=== PATIENT | male | born 1985 | race Caucasian/White ===

== ENCOUNTER 2021-11-24 15:42 | Emergency (ER) | payer SELFPAY ==
[2021-11-24 17:40] VITALS: BP 131/88; PULSE 72; RESP 20; TEMP 36.9; O2SAT 95; BMI 35.9
[2021-11-24 17:43] LABS: UTC Influenza A Antigen Negative (Negative); UTC Influenza B Antigen Negative (Negative)
--- NOTE | 2021-11-24 17:54 | HMH.EDUTC ---
[facility] [place] Disposition Clinical Impression: Bronchitis Sinusitis Qualifiers: Sinusitis location: unspecified location Chronicity: acute Recurrence: non-recurrent Qualified Code(s): J01.90 - Acute sinusitis, unspecified Disposition: Home, Self-Care Condition on Discharge: Good Instructions: DI for Sinusitis Additional Instructions: Drink plenty of fluids. Take tylenol or ibuprofen for pain or fever. Take the medications as directed. Follow up with your regular doctor. GO TO THE ER FOR ANY WORSENING SYMPTOMS Don't start the oral steroids until tomorrow, since you had the shot here today. Prescriptions: Amoxicillin/Potassium Clav [Amox-Clav 875-125 mg Tablet] 1 tab PO BID #20 tab Transmission Status: Received by [id number] Benzonatate [Benzonatate 100mg cap] 100 mg PO TIDP PRN #30 cap PRN Reason: Cough Transmission Status: Received by [id number] methylPREDNISolone [Medrol] 4 mg PO DIRECTED 6 Days #21 packet Transmission Status: Received by [id number] Referrals: Provider,Referral, [Primary Care Provider] - Time of Disposition: 18:07 Medical Decision Making - Medical Records Medical records reviewed: No: I reviewed the patient's medical records. - Terrell Inquiry Pt receiving controlled substance: No Vital Signs: 11/24/21 17:40 11/24/21 18:17 Temperature 98.5 F 98.5 F Temperature Source Oral Pulse Rate 72 Pulse Rate [Left] 72 Respiratory Rate 20 20 Blood Pressure 131/88 Blood Pressure [Right Arm] 131/88 Blood Pressure Mean [Right Arm] 102 02 Sat by Pulse Oximetry 95 - Lab Data Lab Results 11/24/21 17:26: Influenza Type A Ag Negative, Influenza Type B Ag Negative Orders (Tests/Meds): ORDERS Category Date Time Status Covid-19 Nasal PCR ([facility]) Routine Lab 11/24/21 18:08 Received [facility] [place] HPI - General Stated complaint: cough,congestion Time Seen by Provider: 11/24/21 17:54 Mode of Arrival: Ambulatory Source of Information: Patient Limitations: No Limitations Description of Symptoms (Recalled from Triage Doc. by RN): pt c/o congestion, nasal drainage, and a cough. x4 days HEENT Symptoms (Recalled from RN notes): Yes Resp Symptoms (Recalled from RN notes): Yes Skin Symptoms (Recalled from RN notes): No MS Symptoms (Recalled from RN notes): No Functional Status (Recalled from RN notes): wnl - History of Present Illness Provider Complaint: He states that for the past 2 days he has been getting worsening sinus congestion and a cough. He denies fever. - Related Data Previous Rx's Medication Instructions Recorded Amoxicillin/Potassium Clav 1 tab PO BID #20 tab 11/24/21 [Amox-Clav 875-125 mg Tablet] Benzonatate [Benzonatate 100mg 100 mg PO TIDP PRN #30 cap 11/24/21 cap] methylPREDNISolone [Medrol] 4 mg PO DIRECTED 6 Days #21 11/24/21 packet Allergies Allergy/AdvReac Type Severity Reaction Status Date / Time Ibuprofen Allergy Unknown Uncoded 08/09/17 14:45 Nonsteroidal Allergy Unknown Uncoded 08/09/17 14:45 Antiinflammatory Drug - Worker's Comp Is this a Worker's Comp case?: No [facility] History - Hepatitis A Screen Drug use history?: No High risk sexual behaviors?: No History of sexually transmitted infection?: No Currently employed?: No Childcare worker?: No Do you have indoor plumbing?: Yes Do you have electricity?: Yes Attestation statement:: This patient has been screened for Hepatitis A risk factors. I have reviewed the patient's past medical history: Yes ROS Obtained: Yes All systems reviewed & no additional complaints - Constitutional Constitutional: Reports as per HPI - Eyes Eyes: Denies eye discharge - ENT Ears, Nose, Mouth, and Throat: Reports as per HPI - Cardiovascular Cardiovascular: Denies chest pain - Respiratory Respiratory: Reports chest congestion, Reports cough, Denies dyspnea, Denies stridor, Denies wheezing Physical Exam - General
[2021-11-24 18:17] VITALS: BP 131/88; PULSE 72; RESP 20; TEMP 36.9
== END 2021-11-24 18:20 | disposition home or self-care (01) ==
LOC: UTC 15:57
PROVIDERS: Emergency Provider Nurse Practitioner Family
DX: J20.9 Acute bronchitis, unspecified (principal); J01.90 Acute sinusitis, unspecified
CPT/HCPCS: 87804; 99212; C9803; G0463; U0003; U0005